=== PATIENT | female | born 1940 | race Caucasian/White ===

== ENCOUNTER → 2017-11-18 | Outpatient (CLI) | payer MEDICARE, SELFPAY | PROVIDERS: Family Provider Family Medicine; Visit Provider Family Medicine | DX: Z12.31 Encounter for screening mammogram for malignant neoplasm of breast (principal); Z13.820 Encounter for screening for osteoporosis; Z78.0 Asymptomatic menopausal state; R07.89 Other chest pain | CPT/HCPCS: 36415; 71270; 77067; 77080; 82565; 84520; G0202; Q9967 ==

== ENCOUNTER 2018-01-18 09:26 | Day surgery (SDC) | payer MEDICARE, SELFPAY ==
[2018-01-11 14:11] VITALS: BMI 28.5
[2018-01-18] VITALS (12 sets, daily range): BP systolic 111–142; BP diastolic 56–77; PULSE 60–74; RESP 14–18; TEMP 36.6–36.9; O2SAT 95–100
--- NOTE | 2018-01-18 11:57 | HMH.PROC ---
[facility] Procedure Note Procedure Note:: Colonoscopy Procedure Report: Colonoscopy with cold snare polypectomy Endoscopist: Noah Fuchs II, MD Referring physician: Jeffrey Clark MD Date of Procedure: January 18, 2018 Equipment: Olympus 180 variable stiffness pediatric colonoscope Sedation: Fentanyl 100 mg IV/ Versed 5 mg IV Indication: Mrs. Ba is a 77-year-old female who is here for follow-up screening/surveillance colonoscopy. Her last colonoscopy was in September 2013 (Dr. Sage Moseley M.D.) at which time 3 colon polyps were removed. The patient reports that her brother with colon cancer at age 64. The patient reports no abdominal pain, weight loss, change in her bowel habits or rectal bleeding. Procedure: Prior to the procedure, a history and physical exam was performed, and patient's medications and allergies were reviewed. The risks, benefits and alternatives of the sedation and procedure were discussed with the patient. All questions were answered and informed consent was obtained. The patient was brought to the procedure room. Patient identification and proposed procedure were verified by the physician and the nurse. The patient was placed in a left lateral decubitus position and the scope was passed under direct vision. Throughout the procedure, the patient's blood pressure, pulse, and oxygen saturations were monitored continuously. The colonoscopy was accomplished without difficulty. The patient tolerated the procedure well. Findings: On digital rectal examination there was normal rectal tone. There were no external hemorrhoids. The colonoscope was introduced through the anal canal to the rectum and advanced to the cecum. The ileocecal valve and appendiceal orifice were identified. The scope was advanced a short distance into the ileum which appeared grossly normal. The scope was then withdrawn into the colon. There were 2 colon polyps identified in the ascending ?1 and descending ?1. These ranged in size from 5-6 mm and were all removed via cold snare polypectomy. There were scattered diverticuli throughout the descending and sigmoid colon (LEFT colon). The rectum itself was normal. Upon retroflexion within the rectum there were grade 1-2 internal hemorrhoids with evidence of fibrosis from prior hemorrhoid procedure. Impression: 1. Colonic polyps ?2 2. Left-sided diverticulosis 3. Grade 1-2 internal hemorrhoids with evidence of fibrosis from prior hemorrhoid procedure Plan: Based upon the patient's adenomatous polyps and family history, I would consider one additional colonoscopy in 3-5 years. I would encourage fiber supplementation on a long-term daily maintenance basis.
--- NOTE | 2018-01-18 12:00 | P.PCN_ITS ---
[facility] Procedure Note Procedure Note:: Colonoscopy Procedure Report: Colonoscopy with cold snare polypectomy Endoscopist: Noah Fuchs II, MD Referring physician: Jeffrey Clark MD Date of Procedure: January 18, 2018 Equipment: Olympus 180 variable stiffness pediatric colonoscope Sedation: Fentanyl 100 mg IV/ Versed 5 mg IV Indication: Mrs. Ba is a 77-year-old female who is here for follow-up screening/surveillance colonoscopy. Her last colonoscopy was in September 2013 ( Dr. Sage Moseley M.D.) at which time 3 colon polyps were removed. The patient reports that her brother with colon cancer at age 64. The patient reports no abdominal pain, weight loss, change in her bowel habits or rectal bleeding. Procedure: Prior to the procedure, a history and physical exam was performed, and patient' s medications and allergies were reviewed. The risks, benefits and alternatives of the sedation and procedure were discussed with the patient. All questions were answered and informed consent was obtained. The patient was brought to the procedure room. Patient identification and proposed procedure were verified by the physician and the nurse. The patient was placed in a left lateral decubitus position and the scope was passed under direct vision. Throughout the procedure, the patient's blood pressure, pulse, and oxygen saturations were monitored continuously. The colonoscopy was accomplished without difficulty. The patient tolerated the procedure well. Findings: On digital rectal examination there was normal rectal tone. There were no external hemorrhoids. The colonoscope was introduced through the anal canal to the rectum and advanced to the cecum. The ileocecal valve and appendiceal orifice were identified. The scope was advanced a short distance into the ileum which appeared grossly normal. The scope was then withdrawn into the colon. There were 2 colon polyps identified in the ascending ?1 and descending ?1. These ranged in size from 5-6 mm and were all removed via cold snare polypectomy. There were scattered diverticuli throughout the descending and sigmoid colon (LEFT colon). The rectum itself was normal. Upon retroflexion within the rectum there were grade 1-2 internal hemorrhoids with evidence of fibrosis from prior hemorrhoid procedure. Impression: 1. Colonic polyps ?2 2. Left-sided diverticulosis 3. Grade 1-2 internal hemorrhoids with evidence of fibrosis from prior hemorrhoid procedure Plan: Based upon the patient's adenomatous polyps and family history, I would consider one additional colonoscopy in 3-5 years. I would encourage fiber supplementation on a long-term daily maintenance basis.
== END 2018-01-18 12:51 | disposition home or self-care (01) ==
PROVIDERS: Family Provider Family Medicine; PCP Family Medicine; Visit Provider Internal Medicine Gastroenterology
PROC: 0DJD8ZZ Inspection of Lower Intestinal Tract, Via Natural or Artificial Opening Endoscopic (ICD-10-PCS; CPT 45378; principal; 2018-01-18 11:00)
DX: Z12.11 Encounter for screening for malignant neoplasm of colon (principal); Z86.010 Personal history of colon polyps; Z80.0 Family history of malignant neoplasm of digestive organs; K63.5 Polyp of colon; K57.30 Diverticulosis of large intestine without perforation or abscess without bleeding; K64.0 First degree hemorrhoids; K64.1 Second degree hemorrhoids
CPT/HCPCS: 45380; 88305; 99152; 99153